=== PATIENT | male | born 1995 | race Caucasian/White ===

== ENCOUNTER 2022-06-02 21:11 | Emergency (ER) | payer BC ==
[2022-06-02] MEDS ORDERED: Sodium Chloride 0.9% 1,000 ML IV ONE (21:21)
[2022-06-02] MEDS ORDERED: ceFAZolin 1 GM in Premix Bag 1 BAG IV ONE (21:22)
[2022-06-02 22:33] LABS: POTASSIUM,K 3.1 mmol/L (3.5-5.1)
[2022-06-02] MEDS ORDERED: Lidocaine 1% 5 ML VIAL INJECT ONE (22:35)
[2022-06-02] MEDS ORDERED: Lidocaine 1% 50 ML MDV ONE (22:37)
[2022-06-02] MEDS ORDERED: Acetaminophen/oxyCODONE 325-5 MG Tab PO ONE (23:13)
== END 2022-06-02 23:54 | disposition home or self-care (01) ==
LOC: MW.ED 21:11
DX: S61.411A Laceration without foreign body of right hand, initial encounter (principal); W26.0XXA Contact with knife, initial encounter
CPT/HCPCS: 12002; 36415; 73130; 80053; 80307; 85025; 96360; 99283; A9270; J0690; J2001; J7030; 99284

== ENCOUNTER 2022-11-15 10:48 | Emergency (ER) | payer BC ==
[2022-11-15] MEDS ORDERED: Ondansetron 4 MG/2 ML SDV IVPUSH ONE (12:26)
[2022-11-15] MEDS ORDERED: Lactated Ringers 1,000 ML IV ONE (12:26)
[2022-11-15] MEDS ORDERED: Alum Hydro/Mag Hydro/Simeth XS 15 ML, Lidocaine 2% 5 ML PO ONE ×2 (12:47)
[2022-11-15 13:34] LABS: BASOPHILS PERCENT AUTO 0.3 % (0.0-1.5); EOSINOPHILS PERCENT AUTO 0.8 % (0.0-7.0); HEMATOCRIT 41.1 % (38.0-50.0); HEMOGLOBIN 14.4 g/dL (13.0-17.0); LYMPHOCYTES ABSOLUTE AUTO 1.2 K/uL (0.6-2.4); LYMPHOCYTES PERCENT AUTO 33.6 % (16.0-40.0); MEAN CORPUSCULAR HEMOGLOBIN 29.8 pg (27.0-32.0); MEAN CORPUSCULAR VOLUME 85.1 fL (80.0-98.0); MONOCYTES ABSOLUTE AUTO 0.3 K/uL (0.0-0.8); MONOCYTES PERCENT AUTO 7.1 % (0.0-15.0); NEUTROPHILS ABSOLUTE AUTO 2.1 K/uL (1.4-5.7); NEUTROPHILS PERCENT AUTO 58.2 % (48.0-80.0); NRBC ABSOLUTE 0 K/uL; PLATELET COUNT,PLT 151 K/uL (150-400); RED BLOOD CELL COUNT 4.83 M/uL (4.50-5.90); WHITE BLOOD CELL COUNT,WBC 3.66 K/uL (4.0-11.0)
[2022-11-15 13:47] LABS: GLUCOSE,URINE NEGATIVE (NEGATIVE); KETONES,URINE 15 mg/dL (NEGATIVE); LEUKOCYTE ESTERASE,URINE NEGATIVE (NEGATIVE); NITRITE,URINE NEGATIVE (NEGATIVE); OCCULT BLOOD,URINE NEGATIVE (NEGATIVE); PROTEIN,URINE TRACE mg/dL (NEGATIVE)
[2022-11-15 13:47] LABS: A/G RATIO 1.2 (0.9-1.6); ALBUMIN 4.3 g/dL (3.4-5.0); BILIRUBIN TOTAL 0.7 mg/dL (0.2-1.0); CALCIUM 9.2 mg/dL (8.5-10.1); CARBON DIOXIDE,CO2 28.2 mmol/L (21.0-32.0); EST CRCL DRUG DOSING (CG) 120.27 mL/min; POTASSIUM,K 4.3 mmol/L (3.5-5.1); PROTEIN TOTAL,TP 7.8 g/dL (6.4-8.2)
[2022-11-15 13:48] LABS: APPEARANCE,URINE CLOUDY; BILIRUBIN,URINE SMALL (NEGATIVE); COLOR,URINE DARK YELLOW
[2022-11-15 14:01] LABS: BACTERIA,URINE NOT SEEN (NEGATIVE); EPITHELIAL CELLS,URINE RARE (NONE-FEW); RBC,URINE NONE SEEN (0-2/HPF); URIC ACID CRYSTALS,URINE MODERATE (NEGATIVE); WBC,URINE NONE SEEN (0-5/HPF)
[2022-11-15 14:02] LABS: MUCUS,URINE FEW (NONE-MOD)
== END 2022-11-15 15:14 | disposition home or self-care (01) ==
LOC: MW.ED 10:48
DX: R11.2 Nausea with vomiting, unspecified (principal); R19.7 Diarrhea, unspecified; R10.84 Generalized abdominal pain
CPT/HCPCS: 36415; 80053; 81001; 83690; 85025; 96361; 96374; 99284; A9270; J2405; J7120